=== PATIENT | female | born 1985 | race Caucasian/White ===

== ENCOUNTER → 2020-03-13 10:49 | Outpatient (CLI) | payer MEDICAID, SELFPAY ==
[2020-03-13 10:17] VITALS: BMI 35.7
[2020-03-13 12:15] LABS: Absolute Lymphocyte Count 2.99 X10^3/uL (0.83-4.51); Absolute Neutrophil Count 4.5 X10^3/uL (2.0-7.7); Basophil# 0.07 X10^3/uL; Basophil% 0.8 % (0-1); Eosinophil# 0.61 X10^3/uL; Eosinophils% 6.9 % (0-5); Hematocrit 41.1 % (37-47); Lymphocyte # 2.99 X10^3/ul (4.0); Lymphocyte % 33.7 % (19-41); Mean Corp Hgb Conc 31.6 g/dL (32-36); Mean Corpuscular Hgb 25.6 pg (27.0-32.0); Mean Corpuscular Volume 80.9 fL (81-99); Mean Platelet Vol. 11.5 fl (6.2-12.0); Monocyte# 0.64 X10^3/uL; Monocyte% 7.2 % (0-10); NRBC Flagged by Analyzer 0 % (0-5); Neutrophil # 4.53 X10^3/uL (2.7-7.7); Neutrophil % 50.9 % (47-70); Platelet Count 301 K/mm3 (150-450); RBC Distribution Width CV 13.3 % (11.6-14.6); RBC Distribution Width SD 38.8 fl (35.1-43.9); Red Blood Count 5.08 M/mm3 (4.2-5.4); White Blood Count 8.9 K/mm3 (4.4-11.0)
[2020-03-13 12:43] LABS: ALB/GLOB Ratio 0.9 RATIO (0.9-2.4); AST(SGOT) 11 U/L (15-37); Alanine Aminotransfer ALT/SGPT 26 U/L (13-56); Albumin, Serum 3.6 g/dL (3.2-5.0); Alkaline Phosphatase 102 U/L (45-117); Anion Gap 4 (5-15); BUN 6 mg/dL (7-18); BUN/Creat Ratio 7.2 RATIO (10-20); Calcium,Total 9.3 mg/dL (8.5-10.1); Chloride 107 mmol/L (98-107); Cholesterol 153 mg/dL (200); Creatinine, Serum 0.83 mg/dL (0.55-1.02); EST Glomerular Filtration Rate 85 mL/min (>60); Est Glom Filt Rate - Afr Amer 102 mL/min (>60); Glucose 83 mg/dL (74-106); High Density Lipoprotein 27 mg/dL; Potassium 3.9 mmol/L (3.5-5.1); Protein, Total 7.6 g/dL (6.4-8.2); Sodium Level 139 mmol/L (136-145); Triglycerides 340 mg/dL; Very Low Density Lipoprotein 68 mg/dL (5-40)
== END ==
PROVIDERS: PCP Internal Medicine; Referring Provider Internal Medicine; Visit Provider Internal Medicine
DX: E78.5 Hyperlipidemia, unspecified (principal); G43.909 Migraine, unspecified, not intractable, without status migrainosus
CPT/HCPCS: 36415; 80053; 80061; 85025

== ENCOUNTER → 2020-05-12 20:23 | Outpatient (CLI) | payer MEDICAID, SELFPAY ==
[2020-04-24 11:21] VITALS: BMI 34.8
== END ==
PROVIDERS: PCP Internal Medicine; Visit Provider Internal Medicine
DX: G47.10 Hypersomnia, unspecified (principal)
CPT/HCPCS: 95810

== ENCOUNTER → 2020-07-01 10:05 | Outpatient (CLI) | payer MEDICAID, SELFPAY ==
[2020-07-01 10:46] LABS: Absolute Lymphocyte Count 3.19 X10^3/uL (0.83-4.51); Absolute Neutrophil Count 5.2 X10^3/uL (2.0-7.7); Eosinophil# 0.69 X10^3/uL; Eosinophils% 6.8 % (0-5); Hematocrit 42.4 % (37-47); Hemoglobin 14.2 g/dL (12.0-15.0); Lymphocyte # 3.19 X10^3/ul (4.0); Lymphocyte % 31.6 % (19-41); Mean Corp Hgb Conc 33.5 g/dL (32-36); Mean Corpuscular Hgb 26.8 pg (27.0-32.0); Mean Corpuscular Volume 80.2 fL (81-99); Mean Platelet Vol. 11.5 fl (6.2-12.0); Monocyte# 0.83 X10^3/uL; Monocyte% 8.2 % (0-10); NRBC Flagged by Analyzer 0 % (0-5); Neutrophil # 5.21 X10^3/uL (2.7-7.7); Neutrophil % 51.8 % (47-70); Platelet Count 330 K/mm3 (150-450); RBC Distribution Width SD 40.5 fl (35.1-43.9); Red Blood Count 5.29 M/mm3 (4.2-5.4); White Blood Count 10.1 K/mm3 (4.4-11.0)
[2020-07-01 11:03] LABS: Hemoglobin A1c 6.3 % (3.8-5.6)
[2020-07-01 11:18] LABS: T4 Free Direct 0.97 ng/dL (0.76-1.46); Thyroid Stim Hormone (TSH) 1.63 uIU/mL (0.358-3.74)
[2020-07-02 20:36] LABS: Anti-Thyroglobulin AB < 1.0 IU/mL (0.0-0.9); Thyroglobulin, Serum Qt. 22.6 ng/mL (1.5-38.5); Thyroid Peroxidase AB < 9 IU/mL (0-34)
== END ==
PROVIDERS: PCP Internal Medicine; Visit Provider Nurse Practitioner Acute Care
DX: R53.83 Other fatigue (principal)
CPT/HCPCS: 36415; 83036; 84432; 84439; 84443; 84481; 85025; 86376; 86800

== ENCOUNTER → 2020-11-05 08:38 | Outpatient (CLI) | payer MEDICAID, SELFPAY ==
[2020-08-13 13:21] VITALS: BMI 35.6
--- NOTE | 2020-11-05 13:22 | PFT ---
INTRODUCTION: The patient is a 34-year-old female that presents for pulmonary function studies secondary to a diagnosis of tobacco dependency. Respiratory therapy reports good patient effort. Bronchodilators were used during testing. INTERPRETATION: Forced expiration spirometry demonstrates no evidence of a large airways obstructive ventilatory defect. There was no significant response to aerosolized bronchodilators. Spirograms are of good quality and plateau normally. The respiratory flow volume loop is normal. Body plethysmography was performed and reveals a decreased TLC to 5.15 L, 81% of predicted, indicative of a mild restrictive ventilatory impairment. Diffusing capacity by single breath CO is within normal limits. IMPRESSION: Isolated mild restrictive ventilatory impairment with preserved diffusing capacity.
== END ==
PROVIDERS: PCP Internal Medicine; Referring Provider Nurse Practitioner Acute Care; Visit Provider Nurse Practitioner Acute Care
DX: F17.200 Nicotine dependence, unspecified, uncomplicated (principal)
CPT/HCPCS: 94060; 94726; 94729

== ENCOUNTER → 2020-11-17 14:08 | Outpatient (CLI) | payer MEDICAID, SELFPAY ==
[2020-11-05 13:23] VITALS: BMI 35.6
--- NOTE | 2020-11-17 14:10 | RAD_ITS ---
STUDY: X-RAY - LUMBAR SPINE REASON FOR EXAM: Female, 35 years old. Low back pain TECHNIQUE: 5 view(s) of the lumbar spine were obtained. COMPARISON: None FINDINGS: There has been previous laminectomy at L4 and L5. Normal lumbar lordosis. There is no substantial scoliosis. There is a normal alignment of the vertebrae. Normal vertebral bodies and endplates. Normal disc space heights except for narrowing at L5/S1. There is no demonstrated fracture. The soft tissue structures are unremarkable. RAD/L/S Spine Min 4 Views IMPRESSION: Degenerative changes at L5/S1 Previous laminectomy at L4-5 No acute findings Electronically Signed: Marquis Santos MD at 17:21 EDT , Service support ,
== END ==
PROVIDERS: PCP Internal Medicine; Referring Provider Internal Medicine; Visit Provider Internal Medicine
DX: M54.9 Dorsalgia, unspecified (principal); G89.29 Other chronic pain
CPT/HCPCS: 72110

== ENCOUNTER 2020-12-22 11:00 | Outpatient (RCR) | payer MEDICAID, SELFPAY ==
[2020-11-05 13:23] VITALS: BMI 35.6
--- NOTE | 2020-11-26 11:29 | HP.PTEVAL ---
Patient's Visit Information MADINA MARTINEZ is a 35 year old F referred to Physical Therapy by Dr. Paul Zhu MD with a diagnosis of DORSALGIA. Date of Evaluation: 11/26/20 Physical Therapist: Candie Tavares PT, Cert MDT - Visit Plan Frequency: 2-3x /Week Duration: 2-4 Months Plan: AQUATIC THERAPY FOR BACK PAIN RELIEF, POSTURE CORRECTION/STRENGTHENING, INSTRUCTION IN APPROPRIATE BODY MECHANICS AND ACTIVITY MODIFICATIONS. DLS STARTING WITH A NEUTRAL SPINE PROGRESSING ROM TOLERATED. TAYLOR LE ROM, STRETCHING AND STRENGTHENING. HEP INSTRUCTION. 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 Disability: NO. Present symptoms: MID AND LOW BACK PAIN. NUMBNESS LEFT HALF OF LEFT FOOT SINCE AFTER BACK SURGERY 2014. Present since: SINCE 6TH GRADE. Pain Scale: WORST 9/10, LEAST 3/10. Currently: 3/10. Commenced as a result of: NO APPARENT REASON. Symptoms at onset: BACK PAIN. Worse: BENDING, LIFTING, TWISTING, SITTING, WALKING, STANDING, HOUSEWORK AND CHILDCARE. Better: LYING DOWN. Disturbed sleep: YES. Previous history/Previous treatment: CHIROPRACTOR CURRENTLY AND OFF AND ON SINCE CHILDHOOD - PATIENT REPORTS GOING TO THE CHIROPRACTOR DOESN'T HELP OTHER THAN EASING HUNTER'S A LITTLE BIT. 2015 LUMBAR LAMINECTOMY L45. PHYSICAL THERAPY AT THE HOSPITAL IN [place] BEFORE BACK SURGERY AND IT MADE IT WORSE. NO MARIO'S. Treatment this episode: LUMBAR X-RAY. PT CONSULT. ORTHO REFERRAL. Coughing/sneezing/straining: SOMETIMES. Gait: I CAN'T DO IT FOR VERY LONG. PATIENT REPORTS GROCERY SHOPPING IS PAIN LIMITED. HAS TO LEAN ON CART AND CAN ONLY DO IT FOR ABOUT 15 MINUTES. Difficulty initiating urinatin: NO. Accidents: NO. Unexplained weight loss: NO. Imaging: RECENT LUMBAR X-RAY: DEGENERATIVE CHANGES L5S1, PREVIOUS LAMINECTOMY L45. NO ACUTE FINDINGS. PMH: MIGRAINES, DEPRESSION, ANXIETY, VERTIGO - Objective Sitting/Standing Posture: POOR. Lordosis: REDUCED. Lateral shift: NO. Relevant shift: N/A. Active Correction of posture: WORSE. Other Observations: INDEP GAIT INTO PT TODAY WITHOUT ANY ASSISTIVE DEVICES OR LOG BUT DECREASED CADANCE. ABLE TO TRANSFER INDEP'LY FROM SIT TO STAND WITHOUT UE ASSIST. Motor deficit: TAYLOR LE'S 5/5 WITH MMT'ING. Sensory deficit: TAYLOR LE LIGHT TOUCH SENSATION INTACT AND SYMMETRICAL. ROM deficit: TIGHT TAYLOR LE HIP FLEXORS, HS'S AND GASTROC SOLEUS COMPLEX'S. Reflexes: UNABLE TO ELICIT TAYLOR LE DTR'S. Dural Signs: POSITIVE TAYLOR LE'S. Lumbar mvmt loss: flex - MOD. ext - MOD. R SG - MIN. L SG - MIN. PATIENT C/O INCREASED BACK PAIN WITH FLEX AND R SG ROM TESTING. Core strength: POOR. Palpation: NO ACUTE LUMBAR OR SACRAL TENDERNESS TODAY BUT INCREASED TAYLOR PARASPINAL MUSCLE TONE. TREATMENT: NEUROMUSCULAR REEDUCATION - RETRAINING OF MVMT AND POSTURE FOR SITTING, LYING AND STANDING ACTIVITIES. - Goals Goal 1:: DECREASE C/O BACK PAIN Goal Time Frame: 8-12 Weeks Goal 2:: IMPROVE PERSONAL CARE, LIFTING, WALKING, SITTING, STANDING, SOCIAL LIFE, TRAVEL AND HOMEMAKING FUNCTION Goal Time Frame: 8-12 Weeks Goal 3:: INSTRUCT IN PROPHYLAXIS Goal Time Frame: 8-12 Weeks - Anticipated Interventions Patient/Client Instruction: Educate patient on: Condition, Plan of Care, Risk Factors For the Purpose of:: To improve self management Therapeutic Exercise to Include: Strength training, Body mechanics, Postural training, Flexibilty training, Neuromotor development, In an aquatic setting, Dynamic Lumbar Stabilization, Scapular Strength/Stabilization For the Purpose of:: To decrease pain, To improve muscle performance and motor function, To increase tolerance to activity/condition/position, To improve ability of physical actions for home/community/work/leisure TENS: Yes IF ES: Yes Cryotherapy (ice pack, ice massage): Yes Thermo therapy (hot pack): Yes Ultrasound (thermal/non thermal): Yes Comment: *CHECK INSURANCE APPROVAL* For the Purpose of:: To decrease pain, To decrease swelling/inflammation, To improve nutrient delivery to tissue Thank you for the opportunity to evaluate your patient. For Medicare and Medicare HMO plans, please review the plan of care and approve it. It will need to be FAXED BACK to us at [phone] for Medicare purposes. For Medicare only, by signing this I certify the plan of care. Please let me know if there are questions or concerns regarding this plan of care. Physician Signature: Date:
--- NOTE | 2021-03-29 10:49 | HP.PTDCNRP_ITS ---
MADINA MORENO was seen in my office for initial evaluation on 11/26/20. The following Plan of Care was established for this patient: Initial Frequency: 2-3x /Week Initial Duration: 2-4 Months Patient/Client Instruction: Educate patient on: Condition, Plan of Care, Risk Factors For the Purpose of:: To improve self management Therapeutic Exercise to Include: Strength training, Body mechanics, Postural training, Flexibilty training, Neuromotor development, In an aquatic setting, Dynamic Lumbar Stabilization, Scapular Strength/Stabilization For the Purpose of:: To decrease pain, To improve muscle performance and motor function, To increase tolerance to activity/condition/position, To improve ability of physical actions for home/community/work/leisure TENS: Yes IF ES: Yes Cryotherapy (ice pack, ice massage): Yes Thermo therapy (hot pack): Yes Ultrasound (thermal/non thermal): Yes Comment: *CHECK INSURANCE APPROVAL* For the Purpose of:: To decrease pain, To decrease swelling/inflammation, To improve nutrient delivery to tissue This patient was last seen in our office 12/22/20. Pertinent comments regarding their Physical therapy will appear below: This patient has not returned to Physical Therapy and is appropriate to return t o MD for further follow-up as needed. At this point I will be discontinuing this patient from physical therapy. I would be happy to see this patient again in the future if found appropriate by the physician. Thank you! Candie Tavares, PT, Cert MDT Balance/Gait/Functional tests - Balance/Special Test Scores Oswestry Low Back Score: 20
== END 2020-12-22 19:00 | disposition home or self-care (01) ==
LOC: PT 11:00
PROVIDERS: PCP Internal Medicine; Referring Provider Internal Medicine; Visit Provider Internal Medicine
DX: M54.9 Dorsalgia, unspecified (principal); G89.29 Other chronic pain
CPT/HCPCS: 97112; 97113; 97162

== ENCOUNTER → 2021-01-19 17:01 | Outpatient (CLI) | payer MEDICAID, SELFPAY ==
[2021-01-19 14:18] VITALS: BMI 36.4
--- NOTE | 2021-01-19 17:02 | RAD_ITS ---
STUDY: X-RAY - RIGHT SHOULDER REASON FOR EXAM: Female, 35 years old. Right shoulder pain. TECHNIQUE: 4 view(s) of the shoulder. COMPARISON: None. FINDINGS: Normal glenohumeral articulation. Normal acromioclavicular joint. Normal acromion. Bone island in the proximal humerus. The soft tissue structures are unremarkable. Normal visualized pulmonary apex. RAD/Shoulder min 2 Views IMPRESSION: No abnormality of the right shoulder. Electronically Signed: Marco Antonio Neri MD at 12:25 EDT , Service support ,
== END ==
PROVIDERS: PCP Internal Medicine; Referring Provider Nurse Practitioner Family; Visit Provider Nurse Practitioner Family
DX: M25.511 Pain in right shoulder (principal)
CPT/HCPCS: 73030

== ENCOUNTER 2021-08-04 11:19 | Outpatient (CLI) | payer MEDICAID, SELFPAY ==
[2021-08-04 12:34] LABS: Absolute Lymphocyte Count 3.77 X10^3/uL (0.83-4.51); Basophil# 0.08 X10^3/uL; Basophil% 0.6 % (0-1); Eosinophil# 0.58 X10^3/uL; Eosinophils% 4.7 % (0-5); Hematocrit 42.4 % (37-47); Hemoglobin 14.3 g/dL (12.0-15.0); Lymphocyte # 3.77 X10^3/ul (0.83-4.51); Lymphocyte % 30.4 % (19-41); Mean Corp Hgb Conc 33.7 g/dL (32-36); Mean Corpuscular Hgb 28.8 pg (27.0-32.0); Mean Corpuscular Volume 85.3 fL (81-99); Mean Platelet Vol. 11.5 fl (6.2-12.0); Monocyte# 0.82 X10^3/uL; Monocyte% 6.6 % (0-10); NRBC Flagged by Analyzer 0 % (0-5); Neutrophil # 7.02 X10^3/uL (2.7-7.7); Neutrophil % 56.5 % (47-70); Platelet Count 322 K/mm3 (150-450); RBC Distribution Width CV 12.4 % (11.6-14.6); RBC Distribution Width SD 38.1 fl (35.1-43.9); Red Blood Count 4.97 M/mm3 (4.2-5.4); White Blood Count 12.4 K/mm3 (4.4-11.0)
[2021-08-04 12:58] LABS: ALB/GLOB Ratio 0.9 RATIO (0.9-2.4); AST(SGOT) 10 U/L (15-37); Alanine Aminotransfer ALT/SGPT 21 U/L (13-56); Albumin, Serum 3.6 g/dL (3.2-5.0); Alkaline Phosphatase 129 U/L (45-117); Anion Gap 4 (5-15); BUN 8 mg/dL (7-18); BUN/Creat Ratio 10.4 RATIO (10-20); Calcium,Total 9.2 mg/dL (8.5-10.1); Chloride 104 mmol/L (98-107); Cholesterol 129 mg/dL (200); Creatinine, Serum 0.77 mg/dL (0.55-1.02); EST Glomerular Filtration Rate 92 mL/min (>60); Est Glom Filt Rate - Afr Amer 111 mL/min (>60); Globulin 4.2 g/dL (2.2-4.2); Glucose 164 mg/dL (74-106); High Density Lipoprotein 31 mg/dL; Potassium 4.1 mmol/L (3.5-5.1); Protein, Total 7.8 g/dL (6.4-8.2); Sodium Level 137 mmol/L (136-145); Triglycerides 250 mg/dL; Very Low Density Lipoprotein 50 mg/dL (5-40)
[2021-08-04 13:10] LABS: Microalbumin:Creatinine Ratio 12.4 mg/g CRE (<30 mg/g CRE)
[2021-08-04 13:16] LABS: Vitamin D,25 Hydroxy 19.9 ng/mL
== END 2021-08-04 23:59 | disposition home or self-care (01) ==
LOC: BIMLAB 11:20
PROVIDERS: PCP Internal Medicine; Referring Provider Nurse Practitioner Family; Visit Provider Nurse Practitioner Family
DX: E11.9 Type 2 diabetes mellitus without complications (principal)
CPT/HCPCS: 36415; 80053; 80061; 82043; 82306; 82570; 84443; 85025

== ENCOUNTER 2021-08-24 10:30 | Outpatient (RCR) | payer MEDICAID, SELFPAY | END 2021-09-16 23:59 | LOC: DC 10:30 | PROVIDERS: PCP Internal Medicine; Referring Provider Nurse Practitioner Family; Visit Provider Nurse Practitioner Family | DX: E11.9 Type 2 diabetes mellitus without complications (principal) | CPT/HCPCS: 97802; G0108 ==

== ENCOUNTER 2021-09-22 09:00 | Outpatient (RCR) | payer MEDICAID, SELFPAY | END 2021-10-16 23:59 | LOC: DC 09:00 | PROVIDERS: PCP Internal Medicine; Referring Provider Nurse Practitioner Family; Visit Provider Nurse Practitioner Family | DX: E11.9 Type 2 diabetes mellitus without complications (principal) | CPT/HCPCS: 97803; G0108 ==

== ENCOUNTER → 2022-07-07 | Outpatient (CLI) | payer MEDICAID, SELFPAY ==
--- NOTE | 2022-07-07 10:40 | RAD_ITS ---
EXAM: XR CERVICAL SPINE, 2 OR 3 VIEWS CLINICAL INDICATION: chronic neck pain TECHNIQUE: Frontal and lateral views of the cervical spine. This report was created using [employer] report generation technology. COMPARISON: None. FINDINGS: VERTEBRAE: Unremarkable. Preserved vertebral body height. No acute fracture. No spondylolisthesis. Preservation of the normal cervical lordosis. No significant facet arthropathy. DISC SPACES: Unremarkable. Disc spaces are maintained. SOFT TISSUES: Unremarkable. No prevertebral soft tissue widening. LUNG APICES: Clear. RAD/Cerv Spine 2 or 3 Views IMPRESSION: No evidence of acute fracture or spondylolisthesis. Electronically Signed: Lopez Alvarez MD at 17:33 EST ,
== END | disposition home or self-care (01) ==
LOC: RAD 10:39
PROVIDERS: PCP Internal Medicine; Visit Provider Nurse Practitioner Family
DX: M54.2 Cervicalgia (principal)
CPT/HCPCS: 72040

== ENCOUNTER 2022-08-23 14:00 | Outpatient (RCR) | payer MEDICAID, SELFPAY ==
--- NOTE | 2022-07-29 08:56 | HP.PTEVAL_ITS ---
Patient's Visit Information MADINA MORENO is a 36 year old F referred to Physical Therapy by Pernell Hastings NP-C with a diagnosis of DORSALGIA,CHRONIC PAIN. Date of Evaluation: 07/29/22 Physical Therapist: Cecil Duque, PT, Cert MDT, OCS - Visit Plan Frequency: 2x /Week Duration: 4 Weeks Plan: PT INTERVETIONS GRADED DLS ,POSTURAL EX'S ,LUMBAR ROM ,ACTIVITIY MODIFICATION AND MODALTIES - Subjective This 36 y/o female presents to physical therapy with back pain. Patient has had lumbar pain for many years. Patient has had laminectomy discectomy ~ 7 years ago May 2017. Patient pain progressively worse. Patient pain located symmetrical lumbar pain in legs occasionally. Patient was prednisone recommended and Dr. Del Angel spine consult. Aggravating factors bending/lifting/walking/standing and sitting. Alleviating factors rest . Coughing/sneezing +. Bowel/bladder-. Denies paresthesia/tingling. Patient pain affects sleeping. Patient affects QOL and function and job demands . Patient has tried Aquatic PT which did not help. Patient goal to have no more pain. Patient has Tens Unit. Medication : muscle relaxer. SOCIAL: . VOCATION: Cleaning - Pain Bilateral Back Pain Intensity (Out of 10): 5 Pain Intensity Range: 10 - Objective POSTURE: mild forward posture. GAIT: reciprocal pattern. NEURO: denies paresthesia/tingling ,reflexes L3-4,L4-L5 ,L5 -S1 1/3. PALAPTION: unremarkable. SYMMTRIES: align. MMT: quads/hamstrings ,4/5 ,hip flexion 4-/5 ,ankle. LUMBAR ROM: flexion mod loss ,extension mod loss pain ,side glides mod loss - Special Tests L/S Slump test left side: Negative L/S Slump test right side: Negative L/S Left Straight Leg Raise: Negative L/S Right Straight Leg Raise: Negative - Balance/Special Test Scores Oswestry Low Back Score: 34 - Goals Goal 1:: Patient to be I with HEP Goal Time Frame: 4-6 Weeks Goal 2:: Patient to improve posture for ADLS 80 % of the time Goal Time Frame: 4-6 Weeks Goal 3:: Patient to demonstrate 40% improvement with less pain and improved function Goal Time Frame: 4-6 Weeks Goal 4:: Patient to improve lumbar ROM for function of recovery to tie shoes. Goal Time Frame: 4-6 Weeks Goal 5:: Patient to improve back oswestry score by 5 points or > to improve QOL Goal Time Frame: 4-6 Weeks - Rehabilitation Potential Physical Therapy Diagnosis: This patient has lumbar pain with h/o laminectomy with pain with motion testing ,positioning ,decrease ROM with pain affects most activity thus benefit from skilled PT. Rehabilitation Potential: Good - Anticipated Interventions Patient/Client Instruction: Educate patient on: Condition, Plan of Care For the Purpose of:: To decrease pain, To increase ROM, To improve muscle performance and motor function, To improve ability to perform ADL's, To increase tolerance to activity/condition/position, To improve performance and independence with ADL's, To improve ability of physical actions for home/community/work/leisure, To improve health of tissue, To increase flexibility/ROM, To improve endurance, To improve balance, To prevent re-injury, To improve tolerance to ADL's Therapeutic Exercise to Include: Strength training, Body mechanics, Postural training, Flexibilty training, Active ROM, Dynamic Lumbar Stabilization For the Purpose of:: To decrease pain, To increase ROM, To improve muscle performance and motor function, To increase tolerance to activity/condition/position, To improve ability of physical actions for home/community/work/leisure, To improve health of tissue, To decrease soft tissue restriction, To increase flexibility/ROM, To prevent re-injury, To improve tolerance to ADL's TENS: Yes IF ES: Yes Cryotherapy (ice pack, ice massage): Yes Thermo therapy (hot pack): Yes Ultrasound (thermal/non thermal): Yes For the Purpose of:: To decrease pain, To increase ROM, To improve nutrient delivery to tissue, To increase oxygenation perfusion, To improve health of tissue, To decrease soft tissue restriction Thank you for the opportunity to evaluate your patient. For Medicare and Medicare HMO plans, please review the plan of care and approve it. It will need to be FAXED BACK to us at [phone] for Medicare purposes. For Medicare only, by signing this I certify the plan of care. Please let me know if there are questions or concerns regarding this plan of care. Physician Signature: Date:
--- NOTE | 2022-10-25 11:00 | HP.PTDCNRP_ITS ---
MADINA MORENO was seen in my office for initial evaluation on 07/29/22. The following Plan of Care was established for this patient: Initial Frequency: 2x /Week Initial Duration: 4 Weeks Patient/Client Instruction: Educate patient on: Condition, Plan of Care For the Purpose of:: To decrease pain, To increase ROM, To improve muscle performance and motor function, To improve ability to perform ADL's, To increase tolerance to activity/condition/position, To improve performance and independence with ADL's, To improve ability of physical actions for home/community/work/leisure, To improve health of tissue, To increase flexibility/ROM, To improve endurance, To improve balance, To prevent re-injury, To improve tolerance to ADL's Therapeutic Exercise to Include: Strength training, Body mechanics, Postural training, Flexibilty training, Active ROM, Dynamic Lumbar Stabilization For the Purpose of:: To decrease pain, To increase ROM, To improve muscle performance and motor function, To increase tolerance to activity/condition/ position, To improve ability of physical actions for home/community/work/leisure, To improve health of tissue, To decrease soft tissue restriction, To increase flexibility/ROM, To prevent re-injury, To improve tolerance to ADL's TENS: Yes IF ES: Yes Cryotherapy (ice pack, ice massage): Yes Thermo therapy (hot pack): Yes Ultrasound (thermal/non thermal): Yes For the Purpose of:: To decrease pain, To increase ROM, To improve nutrient delivery to tissue, To increase oxygenation perfusion, To improve health of tissue, To decrease soft tissue restriction This patient was last seen in our office . Pertinent comments regarding their Physical therapy will appear below: This patient seen for PT for back pain. Patient had MRI and referred to DR Del Angel At this point I will be discontinuing this patient from physical therapy. I would be happy to see this patient again in the future if found appropriate by the physician. Thank you! Cecil Duque, PT, Cert MDT, OCS Balance/Gait/Functional tests - Balance/Special Test Scores Oswestry Low Back Score: 34
== END 2022-08-23 19:00 | disposition home or self-care (01) ==
LOC: PT 14:00
PROVIDERS: PCP Internal Medicine; Referring Provider Nurse Practitioner Family; Visit Provider Nurse Practitioner Family
DX: M54.9 Dorsalgia, unspecified (principal); G89.29 Other chronic pain
CPT/HCPCS: 97110; 97162

== ENCOUNTER → 2022-09-15 | Outpatient (CLI) | payer MEDICAID, SELFPAY ==
--- NOTE | 2022-09-15 06:11 | MRI_ITS ---
EXAM: MR Spine Lumbar WO/W Contrast HISTORY: LOW BACK PAIN, RIGHT LEG PAIN TECHNIQUE: MR Spine Lumbar WO/W Contrast COMPARISON: XR lumbar spine August 04, 2022. LIMITATIONS: None. FINDINGS: The cord terminates at L1. No acute fracture identified. Postsurgical changes after bilateral laminectomy at L4-5 and L5-S1. Mild disc bulge at L3-4 without significant neural foraminal narrowing or central canal stenosis. Disc bulge at L4-5 results in mild to moderate bilateral neural foraminal narrowing without significant central canal stenosis. Mild disc bulge at L5-S1 without significant neural foraminal narrowing or central canal stenosis. No epidural abscess identified. No evidence of osteomyelitis/discitis. MRI/Spine Lumbar W/WO Contrast IMPRESSION: Postsurgical changes after bilateral laminectomy at L4-5 and L5-S1. Disc bulge at L4-5 with mild to moderate bilateral neural foraminal narrowing without significant central canal stenosis. No epidural abscess identified. Electronically Signed: Korey Barnett MD at 20:14 EDT ,
[2022-09-15 07:00] LABS: CREATININE FINGERSTICK < 0.9 mg/dL (0.55-1.02); EGFR FINGERSTICK > 60.0000 mL/min (>60)
== END | disposition home or self-care (01) ==
LOC: MRI 06:11
PROVIDERS: PCP Internal Medicine; Referring Provider Orthopaedic Surgery; Visit Provider Orthopaedic Surgery
DX: Z01.812 Encounter for preprocedural laboratory examination (principal); M54.50 Low back pain, unspecified
CPT/HCPCS: 72158; A9575

== ENCOUNTER → 2023-04-13 | Outpatient (CLI) | payer MEDICAID, SELFPAY ==
[2023-04-13 17:01] LABS: ALB/GLOB Ratio 0.8 RATIO (0.9-2.4); AST(SGOT) 15 U/L (15-37); Absolute Lymphocyte Count 3.21 X10^3/uL (0.83-4.51); Absolute Neutrophil Count 5.8 X10^3/uL (2.0-7.7); Alanine Aminotransfer ALT/SGPT 28 U/L (13-56); Albumin, Serum 3.3 g/dL (3.2-5.0); Alkaline Phosphatase 88 U/L (45-117); Anion Gap 4 (5-15); BUN 8 mg/dL (7-18); BUN/Creat Ratio 10.7 RATIO (10-20); Basophil# 0.07 X10^3/uL; Basophil% 0.7 % (0-1); Calcium,Total 8.7 mg/dL (8.5-10.1); Chloride 105 mmol/L (98-107); Cholesterol 168 mg/dL (200); Creatinine, Serum 0.75 mg/dL (0.55-1.02); EST Glomerular Filtration Rate 93 mL/min (>60); Eosinophil# 0.59 X10^3/uL; Eosinophils% 5.6 % (0-5); Est Glom Filt Rate - Afr Amer 113 mL/min (>60); Globulin 3.9 g/dL (2.2-4.2); Glucose 112 mg/dL (74-106); Hematocrit 43.2 % (37-47); Hemoglobin 14.3 g/dL (12.0-15.0); High Density Lipoprotein 27 mg/dL; Lymphocyte # 3.21 X10^3/ul (0.83-4.51); Lymphocyte % 30.7 % (19-41); Mean Corp Hgb Conc 33.1 g/dL (32-36); Mean Corpuscular Hgb 27.7 pg (27.0-32.0); Mean Corpuscular Volume 83.6 fL (81-99); Mean Platelet Vol. 11.1 fl (6.2-12.0); Monocyte# 0.74 X10^3/uL; Monocyte% 7.1 % (0-10); NRBC Flagged by Analyzer 0 % (0-5); Neutrophil % 55.4 % (47-70); Platelet Count 261 K/mm3 (150-450); Potassium 3.8 mmol/L (3.5-5.1); Protein, Total 7.2 g/dL (6.4-8.2); RBC Distribution Width CV 12.6 % (11.6-14.6); RBC Distribution Width SD 38.3 fl (35.1-43.9); Red Blood Count 5.17 M/mm3 (4.2-5.4); Sodium Level 138 mmol/L (136-145); Triglycerides 780 mg/dL; White Blood Count 10.5 K/mm3 (4.4-11.0)
== END | disposition home or self-care (01) ==
LOC: BIMLAB 15:45
PROVIDERS: PCP Internal Medicine; Referring Provider Internal Medicine; Visit Provider Internal Medicine
DX: E11.9 Type 2 diabetes mellitus without complications (principal); E78.5 Hyperlipidemia, unspecified
CPT/HCPCS: 36415; 80053; 80061; 85025

== ENCOUNTER → 2023-10-16 | Outpatient (CLI) | payer MEDICAID, SELFPAY ==
[2023-10-16 10:06] LABS: Hematocrit 40.4 % (37-47); Hemoglobin 13.4 g/dL (12.0-15.0); Mean Corp Hgb Conc 33.2 g/dL (32-36); Mean Corpuscular Hgb 27.3 pg (27.0-32.0); Mean Corpuscular Volume 82.4 fL (81-99); Mean Platelet Vol. 10.6 fl (6.2-12.0); Platelet Count 321 K/mm3 (150-450); RBC Distribution Width CV 12.2 % (11.6-14.6); RBC Distribution Width SD 36.5 fl (35.1-43.9); White Blood Count 9.9 K/mm3 (4.4-11.0)
[2023-10-16 11:00] LABS: AST(SGOT) 17 U/L (15-37); Alanine Aminotransfer ALT/SGPT 26 U/L (13-56); Albumin, Serum 3.5 g/dL (3.2-5.0); Alkaline Phosphatase 84 U/L (45-117); Anion Gap 10 (5-15); BUN 7 mg/dL (7-18); Chloride 103 mmol/L (98-107); Cholesterol 179 mg/dL (200); Creatinine, Serum 0.88 mg/dL (0.55-1.02); EST Glomerular Filtration Rate 78 mL/min (>60); Est Glom Filt Rate - Afr Amer 94 mL/min (>60); Globulin 3.6 g/dL (2.2-4.2); Glucose 110 mg/dL (74-106); High Density Lipoprotein 36 mg/dL; Potassium 3.4 mmol/L (3.5-5.1); Protein, Total 7.1 g/dL (6.4-8.2); Sodium Level 139 mmol/L (136-145); T4 Free Direct 0.86 ng/dL (0.76-1.46); Thyroid Stim Hormone (TSH) 1.32 uIU/mL (0.358-3.74); Triglycerides 234 mg/dL; Very Low Density Lipoprotein 47 mg/dL (5-40)
== END | disposition home or self-care (01) ==
PROVIDERS: Psychiatry & Neurology Neurology; PCP Internal Medicine; Referring Provider Nurse Practitioner; Visit Provider Nurse Practitioner
DX: G43.009 Migraine without aura, not intractable, without status migrainosus (principal); E11.9 Type 2 diabetes mellitus without complications; E78.5 Hyperlipidemia, unspecified
CPT/HCPCS: 36415; 80053; 80061; 84439; 84443; 85027

== ENCOUNTER → 2023-10-28 | Outpatient (CLI) | payer MEDICAID, SELFPAY ==
--- NOTE | 2023-10-28 08:52 | MRI_ITS ---
STUDY: MRI BRAIN WITHOUT CONTRAST REASON FOR EXAM: Female, 37 years old. Migraine headaches-all over head pain, light sensitive x10+ yrs., no prior brain imaging TECHNIQUE: Standardized multiplanar fat and water weighted pulse sequences were obtained. MRI examination of the brain obtained with standard protocol including multiplanar multiecho noncontrast imaging. Contrast: No contrast administered. COMPARISON: No relevant prior comparison study available HEMISPHERES, CEREBELLUM AND BRAINSTEM: 1. The cerebral parenchyma, ventricular system, subarachnoid spaces have normal configuration and density. There is a normal gyral pattern. There is normal malone/white differentiation. No midline shift.. 2. The hemispheric white matter has normal appearance. 3. No intraparenchymal mass, hemorrhage, or acute territorial infarct. 4. The cerebellum, brainstem, basilar and suprasellar cisterns have normal appearance. No Chiari malformation. PITUITARY: Infundibulum and pituitary have normal configuration. Midline structures appear normal. CSF SPACES: Appropriate for age. No hydrocephalus. Basal cisterns are patent. VESSELS: 1. There are normal flow voids noted in the great vessels at the skull base ORBITS AND PARANASAL SINUSES: 1. Both globes, extraocular muscles, optic nerves and retrobulbar fat appear unremarkable. 2. Paranasal sinuses are clear. BONY ELEMENTS: Bony elements of the cranial vault, facial skeleton and skull base have normal appearance. SCALP AND SOFT TISSUES: Normal appearance of the soft tissues of the scalp and the visualized face OTHER: None MRI/Brain without Contrast IMPRESSION: 1. No intracranial mass, hemorrhage, or acute territorial infarct. 2. No radiographically significant sinus disease. Electronically Signed: Hudson Amezquita MD at 21:41 EDT ,
== END | disposition home or self-care (01) ==
LOC: MRI 08:50
PROVIDERS: PCP Internal Medicine; Visit Provider Psychiatry & Neurology Neurology
DX: G43.009 Migraine without aura, not intractable, without status migrainosus (principal)
CPT/HCPCS: 70551

== ENCOUNTER 2024-11-12 03:10 | Emergency (ER) | payer MEDICAID, SELFPAY ==
[2024-11-12 03:12] VITALS: BP 186/116; PULSE 90; RESP 16; TEMP 37.1; O2SAT 100
[2024-11-12 03:18] VITALS: BP 193/123; PULSE 92; RESP 16; TEMP 37.1; O2SAT 100
[2024-11-12] MEDS: Lidocaine 2% /Epi 1:100 (20ml) 20 ML VIAL INFILT (03:46)
--- NOTE | 2024-11-12 04:13 | EDS_ITS ---
HPI History of Present Illness Chief Complaint: Laceration Informant: patient Narrative Narrative: Patient is a 39-year-old female with past medical history of hypertension and type 2 diabetes. 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 She states that the chair fell from its position and one of the legs did not have the plastic coating over top the bottom portion and it struck her in the left foot just above her shoe sustaining a laceration. She denies any other injury. She states she has been able to ambulate following the accident. She reports her tetanus status is up-to-date. However she has concern she may need sutures based on the depth of the laceration and therefore comes in for evaluation. [facility] Medical History (Updated 11/12/24 @ 04:[address] Dom Logan, DO) Hypertension Flu vaccine need Tobacco abuse Chronic back pain Cervicalgia Migraine Vitamin deficiency Type 2 diabetes mellitus ADHD Right shoulder pain Coital headache Chronic back pain history of multiple c sections Polycystic disease, ovaries history of hives High triglycerides Headache, migraine History of emotional problems History of UTI Back problem Anemia Seasonal allergies Home Medications ?Medication ?Instructions ?Recorded ?Last Taken ?Type epinephrine 0.3 mg/0.3 mL 0.3 mg (0.3 mL) IM Q5-15M CO N 06/16/21 Unknown Rx injection, auto-injector (EpiPen anaphylaxis #2 ea 2-Harjinder) blood sugar diagnostic (OneTouch #50 ea 08/12/21 Unkno wn Rx Ultra Test strips) blood-glucose meter (OneTouch #1 ea 08/12/21 Unknown R x Ultra2 Meter) lancets 33 gauge (Ultra Thin #100 ea 08/12/21 Unknown Rx Lancets) atogepant 60 mg tablet (Qulipta) 60 mg PO DAILY #30 ta bs 02/01/24 Unknown Rx ubrogepant 100 mg tablet (Ubrelvy) 100 mg PO DAILY PRN headache #16 02/01/24 Unknown Rx tabs gemfibrozil 600 mg tablet 600 mg PO BID #180 tabs 01/18 02/09 Unknown Rx losartan 50 mg tablet 50 mg PO DAILY #90 tabs 05/19 09/09 Unknown Rx duloxetine 30 mg capsule,delayed See Rx Instructions . Route 11/06/24 Unknown Rx release .COMPLEX #60 ea Allergy/AdvReac Type Severity Reaction Status Date / Time bee venom protein (honey bee) Allergy Severe Anaphylaxis Verified 11/12/24 03:11 Family History Father Alcoholism Arthritis Grandfather Alcoholism Anemia Cancer Depression Heart disease High cholesterol Respiratory disease Epileptic seizures Skin cancer Hypertension Essential tremor Arthritis Mother Anesthesia complication High cholesterol Mental disorder Arthritis Sister Depression Mental disorder Psychiatric care Grandmother Heart disease Mental disorder Osteoporosis CVA (cerebral vascular accident) Hypertension Arthritis Other Cervical cancer Diabetes Surgical History H/O: hysterectomy History of lumbar laminectomy History of dental surgery History of tonsillectomy H/O laminectomy Social History (Updated 11/12/24 @ 03:33 by Funmilayo Arias) household members: spouse and children housing: house number of children: 5 Smoking Status: Current every day smoker tobacco type: e-cigarettes Tobacco: How many years used: 15 alcohol intake: current alcohol intake frequency: holidays/special occasions only Alcohol type: hard liquor substance use type: does not use what type of physical activity do you participate in: none ROS ROS ED Constitutional Constitutional ED: Denies chills or fever(s) Cardiovascular Cardiovascular: Denies chest pain Respiratory/Chest Respiratory/Chest: Denies cough or dyspnea Gastrointestinal Gastrointestinal: Denies abdominal pain, diarrhea, nausea or vomiting Musculoskeletal Musculoskeletal: Reports other Details: Positive left foot pain Integumentary Reports other Details: Positive left foot laceration Neurologic Neurologic: Denies headache(s) or paresthesias Hematologic/Lymphatic Hematologic/Lymphatic: Denies easy bleeding or easy bruising EXAM Physical Exam Const Vital Signs: 11/12/24 03:12 11/12/24 03:18 11/12/24 04:18 Temperature 98.8 F 98.8 F 98.8 F Temperature Source Oral Oral Oral Pulse Rate 90 92 76 Respiratory Rate 16 16 16 Blood Pressure 186/116 H 193/123 H 172/106 H Blood Pressure Mean 139 146 128 Pulse Ox 100 100 99 Oxygen Delivery Method Room Air Room Air 11/12/24 04:24 11/12/24 04:26 Temperature 98.8 F Temperature Source Pulse Rate 76 76 Respiratory Rate 16 Blood Pressure 172/106 H Blood Pressure Mean 128 Pulse Ox 99 Oxygen Delivery Method Positive well nourished, well developed and obese General Appearance ED: well developed Nutritional Appearance: obese HEENT HEENT Narrative: Normocephalic atraumatic Eyes PERRL and EOMs intact bilaterally General Eye ED: Negative for scleral icterus Neck supple Resp normal respiratory effort and clear to auscultation bilaterally Cardio regular rate and regular rhythm Extremity Extremity Narrative: Left lower extremity is neurovascularly intact. Patient has a linear subcutaneous layer deep laceration to the lateral dorsal aspect of her left foot that is 2 cm in length. There is minimal ooze of blood without foreign body No ligamentous or tendon damage noted No signs of bony deformity or joint effusion No subungual hematoma Compartments are soft and compressible going against compartment syndrome Neuro oriented x3, CN's II-XII intact bilaterally and no sensory deficits noted Sensorium / Orientation: alert Motor Exam: strength 5/5 throughout Psych mental status grossly normal Skin Skin Narrative: Laceration to the dorsal aspect of the left foot as documented above MDM MDM MDM Narrative Medical decision making narrative: Patient arrived to the ER hypertensive but has a past medical history of this. She sustained a simple laceration to her left foot. She reported her tetanus status is up-to-date and therefore there is no need to provide this. Based on her exam and mechanism of injury I have low concern for ligamentous or tendon injury or bony fracture and therefore I do not feel the need for imaging at this time. The patient's wound was sutured as documented below she is otherwise safe for discharge The left foot was cleaned with chlorhexidine. The wound was anesthetized using 5 mL of 2% lidocaine with epinephrine and local fashion. The wound was copiously irrigated with normal saline. Then seven 3-0 Ethilon sutures were placed in simple interrupted fashion. This brought the wound together well with good approximation. Patient tolerated procedure well without complication. History & Record Review Discussion w/independent historian: Patient Discharge Plan Triage Chief Complaint: Laceration ED Provider: Dom Logan Dx/Rx/DC Orders Clinical Impression: Laceration of foot, left, Type 2 diabetes mellitus, Hypertension Instructions: ED Laceration, Foot: All Closures Prescriptions: No Action epinephrine [EpiPen 2-Harjinder] 0.3 mg/0.3 mL auto-injector 0.3 mg IM Q5-15M PRN (Reason: anaphylaxis) Qty: 2 3RF Rx Instructions: do not exceed 3 doses per episode Qulipta 60 mg tablet 60 mg PO DAILY Qty: 30 5RF Ubrelvy 100 mg tablet 100 mg PO DAILY PRN (Reason: headache) Qty: 16 5RF gemfibrozil 600 mg tablet 600 mg PO BID Qty: 180 2RF losartan 50 mg tablet 50 mg PO DAILY Qty: 90 1RF (DME) blood-glucose meter [OneTouch Ultra2 Meter] Misc See Rx Instructions .ROUTE .MEDSUPPLY Qty: 1 0RF Rx Instructions: As directed for type 2 DM (DME) OneTouch Ultra Test Strip See Rx Instructions .ROUTE .MEDSUPPLY Qty: 50 3RF Rx Instructions: As directed (DME) lancets [Ultra Thin Lancets] 33 gauge misc See Rx Instructions .ROUTE .MEDSUPPLY Qty: 100 3RF Rx Instructions: As directed, check glucose daily duloxetine 30 mg capsule,delayed release(DR/EC) See Rx Instructions .ROUTE .COMPLEX Qty: 60 1RF Dose Instruction: Take 1 capsule by mouth twice daily Rx Instructions: Take 1 capsule by mouth twice daily Primary Care Provider: Paul Zhu Referrals: Paul Zhu MD [Primary Care Provider] - Activity Restrictions/Additional Instructions: Please see your family doctor or return to the ER in 7 to 10 days for suture removal Print Language: Norwegian Disposition Disposition: Home, Self Care Discharge Date/Time: 11/12/24 04:27
[2024-11-12 04:18] VITALS: BP 172/106; PULSE 76; RESP 16; TEMP 37.1; O2SAT 99
[2024-11-12 04:24] VITALS: BP 172/106; PULSE 76; RESP 16; TEMP 37.1; O2SAT 99
[2024-11-12 04:26] VITALS: PULSE 76
== END 2024-11-12 04:27 | disposition home or self-care (01) ==
PROVIDERS: Emergency Provider Emergency Medicine; PCP Internal Medicine; Visit Provider Emergency Medicine
DX: S91.312A Laceration without foreign body, left foot, initial encounter (principal); E11.9 Type 2 diabetes mellitus without complications; Z90.710 Acquired absence of both cervix and uterus; W07.XXXA Fall from chair, initial encounter; I10 Essential (primary) hypertension; Z83.3 Family history of diabetes mellitus; F17.290 Nicotine dependence, other tobacco product, uncomplicated; E66.9 Obesity, unspecified
CPT/HCPCS: 12001; 99282